=== PATIENT | male | born 1955 | race Caucasian/White ===

== ENCOUNTER → 2017-04-28 | Outpatient (CLI) | payer OTHER ==
[~2017-04-28] MED LIST: ASPIR 8181 M1 PO; ATORVASTATIN CA40 MG PO; COZAAR 25 MG TA25 MG PO; COZAAR 50 MG TA50 M2 PO; DILANTIN100 MG PO; ECOTRIN325 MG PO; ELIQUIS5 MG PO; EXCEDRIN MIGRA1 EAC1 PO; FLONASE 0.05%50 MCG NASAL; LANSOPRAZOLE30 MG PO; LISINOPRIL10 MG PO; LOVASTATIN 20 M20 MG PO; MINOCIN100 MG PO; NITROSTAT0.4 MG SUBLING; PHENYTOIN50 MG PO; PLAVIX 75 MG TA75 M1 PO; PLAVIX 75 MG TA75 MG PO; PREDNISONE 20 M20 MG PO; PROZAC10 MG PO; VALACYCLOVIR1000 MG PO
== END ==
LOC: M.ULTRA 10:00
DX: R10.11 Right upper quadrant pain (principal)

== ENCOUNTER 2017-05-06 07:35 | Inpatient (IN) | payer OTHER ==
[~2017-05-06] VITALS: Ht 175.3 cm; Wt 86.2 kg
[~2017-05-06 07:35] MED LIST changes: -COZAAR 25 MG TA25 MG PO; -MINOCIN100 MG PO; -PREDNISONE 20 M20 MG PO; -VALACYCLOVIR1000 MG PO
[2017-05-06 07:39] VITALS: BP 138/78
[2017-05-06] MEDS ORDERED: LANSOPRAZOLE30 MG PO (07:45)
[2017-05-06] MEDS ORDERED: VALACYCLOVIR1000 MG PO (07:46)
[2017-05-06 08:23] LABS: ABSOLUTE EOSINOPHILS 0.1 thou/uL (0.0-0.7); ABSOLUTE LYMPHOCYTES 2.6 thou/uL (0.8-5.3); ABSOLUTE MONOCYTES 0.9 thou/uL (0.0-1.2); ABSOLUTE NEUTROPHILS 5.7 thou/uL (1.6-8.1); ANION GAP 8 mmol/L (7-16); BASOPHILS 0.5 %; BUN 19 mg/dL (7-18); CALCIUM 8.6 mg/dL (8.5-10.1); CHLORIDE 104 mmol/L (98-107); CO2 31 mmol/L (21-32); GLUCOSE 98 mg/dL (70-99); HEMATOCRIT 41.7 % (42.0-52.0); HEMOGLOBIN 13.9 gm/dL (14.0-18.0); MCH 27.7 pg (26.0-34.0); MCHC 33.2 g/dL (28.0-37.0); MCV 83.3 fL (80.0-100.0); MONOCYTES 9.8 %; NUCLEATED RBCS 0 /100WBC; PLATELET COUNT* 280 thou/uL (150-400); POLYS 60.7 %; POTASSIUM 4.1 mmol/L (3.5-5.1); RBC 5.01 mil/uL (4.50-6.00); RDW-CV 14.9 % (10.5-14.5); SODIUM 143 mmol/L (136-145); WBC 9.4 thou/uL (4.0-11.0)
[2017-05-06 08:30] LABS: ALBUMIN 3.6 g/dL (3.4-5.0); ALKALINE PHOSPHATASE 72 U/L (46-116); SGOT 17 U/L (15-37); SGPT 47 U/L (30-65); TOTAL BILIRUBIN 0.2 mg/dL (<0.1-1.0); TOTAL PROTEIN 6.8 g/dL (6.4-8.2); TROPONIN-I LEVEL <0.06 ng/mL (<0.06)
[2017-05-06 08:33] LABS: PROTIME 9.7 Seconds (9.20-11.50)
[2017-05-06 09:45] VITALS: BP 140/80
[2017-05-06 09:50] VITALS: BP 136/71
--- NOTE | 2017-05-06 09:50 | NUR ---
RECEIVED REPORT FROM [facility]NEY IN ER. PT TRANSFERED TO TELE FLOOR AT 0950; ASSUMED CARE. PT A&O X4. VSS. O2 SAT 97% ON ROOM AIR. 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 ADMISSION HISTORY, EDUCATION, AND ASSESSMENT COMPLETED CHARTED. PT ORIENTED TO ROOM, BED AND CALL LIGHT. PT INFORMED OF PLAN OF CARE; PT COMMUNICATES UNDERSTANDING. AT BEDSIDE. IV SALINE LOCKED. PT DENIES PAIN OR DISCOMFORT AT THIS TIME. NIH SCORE 1 FOR INCORRECT AGE. PT REPORTS SLIGHT NUMBNESS/TINGLING IN LEFT HAND. PT STATES LEFT ARM FEELS "SOMEWHAT LIMP". PT PASSED BEDSIDE SWALLOW. PT LOW FALL RISK - UP WITH STANDBY ASSISTANCE TO BATHROOM. LOW FALL RISK PRECAUTIONS IN PLACE. CALL LIGHT IS WITHIN REACH. WILL CONTINUE TO MONITOR.
[2017-05-06] MEDS ORDERED: COZAAR 25 MG TA25 MG PO (10:37)
[2017-05-06 12:05] VITALS: BP 116/81
--- NOTE | 2017-05-06 14:45 | EKG ---
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 LAI : 1955 Requested By: Tom Terrell Order Number: [id number] MD: Triston Harp Measurements Intervals [place] Rate: 62 P: -6 WI: 171 QRS: -1 QRSD: 107 T: 9 QT: 379 QTc: 385 Interpretive Statements Sinus rhythm Abnormal R-wave progression, early transition Baseline wander in lead(s) V4 Compared to ECG 11/21/2016 09:29:01 No significant changes Electronically Signed On 05-06-2017 14:45:26 GLUE LINE OPERATOR by Triston Harp [email or web address] <ELECTRONICALLY SIGNED> By: Triston Harp MD, FAC 05/06/17 [id number] Triston Harp MD, [facility] /EPI
[2017-05-06 16:00] VITALS: BP 126/76
--- NOTE | 2017-05-06 16:51 | 2DMMODE ---
[place] [address] 2 D/M-MODE ECHOCARDIOGRAM Name: AYAD BAUMAN Room: [address] IN [facility]#: [id number] Admission: 05/06/17 Attend Phys: Ashish Shirley Discharge: Date of : 53 Date of Service: 05/06/17 1650 Report #: [id number] THIS REPORT FOR: //name// APPROVED REPORT Study performed: 05/06/2017 15:16:42 EXAM: Comprehensive 2D, Doppler, and color-flow Echocardiogram Patient Location: In-Patient Room #: [facility] Status: routine BSA: 2.02 HR: 75 bpm BP: 116/81 mmHg Rhythm: NSR Other Information Study Quality: Good Indications AMS Echo Enhancing Agent Agent(s) / Amount(s) Used: , cc 2D Dimensions LVEF(%): 70.56 (>50%) IVSd: 11.58 (7-11mm) LVOT Diam: 24.28 (18-24mm) LVDd: 46.04 mm PWd: 9.90 (7-11mm) Ascending Ao: 36.28 (22-36mm) LVDs: 27.68 (25-40mm) Aortic Root: 37.09 mm Palumbo's LVEF: 70.56 % Volumes Left Atrial Volume (Systole) LA ESV Index: 13.90 mL/m2 Aortic Valve AoV Peak Eloy.: 1.20 m/s AO Peak Gr.: 5.80 mmHg LVOT Max P.16 mmHg AO Mean Gr.: 3.17 mmHg LVOT Mean P.77 mmHg LVOT Max V: 1.24 m/s AO V2 VTI: 19.93 cm LVOT Mean V: 0.76 m/s NESSA (VTI): 5.08 cm2 LVOT V1 VTI: 21.87 [place] [address] 2 D/M-MODE ECHOCARDIOGRAM Name: AYAD BAUMAN Room: [address] IN [facility].#: [id number] Admission: 05/06/17 Attend Phys: Ashish Shirley Discharge: Date of : 53 Date of Service: 05/06/17 1650 Report #: [id number] Mitral Valve E/A Ratio: 1.05 MV Decel. Time: 205.12 ms MV E Max Eloy.: 0.78 m/s MV PHT: 59.49 ms MVA (PHT): 3.70 cm2 TDI E/Lateral E': 9.75 E/Medial E': 7.80 Medial E' Eloy.: 0.10 m/s Lateral E' Eloy.: 0.08 m/s Pulmonary Valve PV Peak Eloy.: 1.08 m/s PV Peak Gr.: 4.63 mmHg Left Ventricle The left ventricle is normal size. There is normal LV segmental wall motion. There is normal left ventricular wall thickness. Left ventricular systolic function is normal. LVEF is 60-65%. Transmitral Doppler flow pattern suggests impaired LV relaxation. Right Ventricle The right ventricle is normal size. The right ventricular systolic function is normal. Atria The left atrium size is normal. The right atrium size is normal. Aortic Valve The aortic valve is normal in structure. No aortic regurgitation is present. There is no aortic valvular stenosis. Mitral Valve The mitral valve is normal in structure. Trace mitral regurgitation. No evidence of mitral valve stenosis. Tricuspid Valve The tricuspid valve is normal in structure. Unable to assess PA pressure. Trace tricuspid regurgitation. Pulmonic Valve The pulmonary valve is normal in structure. [place] [address] 2 D/M-MODE ECHOCARDIOGRAM Name: AYAD BAUMAN Room: [address] IN [facility]#: [id number] Admission: 05/06/17 Attend Phys: Ashish Shirley Discharge: Date of : 53 Date of Service: 05/06/17 1650 Report #: [id number] Great Vessels The aortic root is normal in size. IVC is normal in size and collapses with >50% inspiration Pericardium There is no pericardial effusion. <Conclusion> The left ventricle is normal size. There is normal left ventricular wall thickness. Left ventricular systolic function is normal. LVEF is 60-65%. Transmitral Doppler flow pattern suggests impaired LV relaxation. Trace mitral regurgitation. IVC is normal in size and collapses with >50% inspiration <ELECTRONICALLY SIGNED> By: Travon Aguero MD, FACC 05/06/171649 49 49 Travon Aguero MD, FACC /INF
--- NOTE | 2017-05-06 18:41 | NUR ---
PT REMAINS A&0X4. VSS. O2 SAT >90% ON ROOM AIR. 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 PT COMPLETED MRI OF HEAD AND CERVICAL SPINE. NIH'S 0 TO 1 - PT STILL REPORTING SLIGHT "LIMP-NESS" IN LEFT ARM. PT EATING AND DRINKING WITHOUT ISSUE. PT ABLE TO BE UP AD JAVAN FOR BATHROOM PRIVILEGES. PT VOIDING WITHOUT ISSUE. PT CONTINUES TO DENY PAIN OR DISCOMFORT. PT PROGRESSING TOWARDS GOALS. LOW FALL RISK PRECAUTIONS IN PLACE. CALL LIGHT IS WITHIN REACH, HOURLY ROUNDING PERFORMED. WILL CONTINUE TO MONITOR FOR DURATION OF SHIFT.
[2017-05-06 19:40] VITALS: BP 141/82
[2017-05-07] VITALS (7 sets, daily range): BP systolic 107–135; BP diastolic 65–84
--- NOTE | 2017-05-07 02:25 | NUR ---
ASSUMED CARE OF PT AT 1900. PT IS ALERT AND ORIENTED. VSS. NO COMPLAINTS OF PAIN. PERRLA. PT IS IN SINUS RYTHM ON THE TELEMETRY. PT IS RESTING COMFORTABLY IN BED. RESPIRATIONS ARE EVEN AND NONLABORED. WILL CONTINUE TO MONITOR PT.
[2017-05-07 05:36] LABS: HEMATOCRIT 42.2 % (42.0-52.0); HEMOGLOBIN 13.8 gm/dL (14.0-18.0); MCH 27.3 pg (26.0-34.0); MCHC 32.7 g/dL (28.0-37.0); MCV 83.4 fL (80.0-100.0); MPV 8.1 fl. (7.2-11.1); NUCLEATED RBCS 0 /100WBC; PLATELET COUNT* 279 thou/uL (150-400); RBC 5.06 mil/uL (4.50-6.00); RDW-CV 14.7 % (10.5-14.5); WBC 11.5 thou/uL (4.0-11.0)
[2017-05-07 06:46] LABS: ABSOLUTE LYMPHOCYTES 1.4 thou/uL (0.8-5.3); ABSOLUTE MONOCYTES 0.7 thou/uL (0.0-1.2); ABSOLUTE NEUTROPHILS 9.4 thou/uL (1.6-8.1); PLATELET ESTIMATE ADEQUATE
--- NOTE | 2017-05-07 08:00 | NUR ---
PT SIOTTING UP IN CHAIR IN ROOM, APPEARS ALERT O X 4, DENIES CHEST PAIN, SOB,PAIN OR DISCOMFORT. MOG COUNTERSINKER BILAT VHANDS, R > L, SPOSE AT SIDE
[2017-05-07 10:18] LABS: HEMATOCRIT 45.6 % (42.0-52.0); HEMOGLOBIN 14.8 gm/dL (14.0-18.0); MCH 27.6 pg (26.0-34.0); MCHC 32.4 g/dL (28.0-37.0); MCV 85.1 fL (80.0-100.0); MPV 7.9 fl. (7.2-11.1); RBC 5.36 mil/uL (4.50-6.00); RDW-CV 15.4 % (10.5-14.5); WBC 20.2 thou/uL (4.0-11.0)
[2017-05-07 10:25] LABS: CALCIUM 9.1 mg/dL (8.5-10.1); CREATININE 1.2 mg/dL (0.6-1.3); POTASSIUM 3.6 mmol/L (3.5-5.1)
--- NOTE | 2017-05-07 11:31 | NUR ---
CM ASSESSMENT: Pt is A&O. Resides at home with his . Independent with ADLs, continues to work outside of the home. No DME. No hx of HH or SNF. Supportive family that is involved in POC. Goal is to return home once medically stable for dc. Following.
--- NOTE | 2017-05-07 12:04 | NUR ---
PT DEMONSTRATES INDEPENDENT AND STABLE FUNCTIONAL MOBILITY W/O DME SUPPORT. PT DEMONSTRATES 5/5 LLE STRENGTH AND INTACT LLE SENSATION. PT AND SPOUSE INDICATE THEY HAVE DME AVAILABLE NEEDED AT HOME AND VOICE NO CONCERNS REGARDING DISCHARGE TO HOME. NO FURTHER ACUTE PT SERVICES ARE INDICATED AT THIS TIME.
[2017-05-07] MEDS ORDERED: PREDNISONE 20 M20 MG PO (14:47)
[2017-05-07] MEDS ORDERED: MINOCIN100 MG PO (14:47)
[2017-05-10 09:47] LABS: POC CA IONIZED 4.6 mg/dL (4.5-5.3); POC HEMOGLOBIN 14.3 g/dL (12.0-17.0)
[2017-05-13] MEDS ORDERED: PLAVIX 75 MG TA75 M1 PO (14:06)
--- NOTE | 2017-05-14 10:39 | CON ---
[address] [address] CONSULTATION Name: AYAD ABUMAN Room: [address] IN .R.#: [id number] Admission: 05/06/17 Attend Phys: Tamera Burt Discharge: 05/07/17 Date of : 53 Report #: [id number] THIS REPORT FOR: //name// CC: Jarrod Shirley DATE OF SERVICE: 05/06/2017 HISTORY OF PRESENT ILLNESS: This is a 62-year-old male patient who was evaluated because he woke up with the left upper extremity weakness. He noticed, then he woke up and he had trouble reaching to his head, he had trouble using his arms. It was predominantly in the ulnar distribution, but lot of arm was affected. He does not remember any trauma. 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 They were severe, now they are moderately severe. 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 Since then, he has seen multiple other neurologist. He saw Dr. Diaz twice during the admission to this hospital. He saw Dr. Castillo who is a neurologist in [facility] and at one time was given Dilantin with symptoms, which I am not sure he had a reaction to Dilantin and it was discontinued and he has not had any more neurological symptoms. REVIEW OF SYSTEMS: He indicates that he is hypertensive. He takes antihypertensive and his hypertension is reasonably under control. He takes aspirin and statin. He does have a history of chest pain. During his stays here in this hospital multiple times he has been seen by multiple physicians. He also has been seen by behavioral health clinician. The record indicated that he does appear to have a patent foramen ovale. REVIEW OF SYSTEMS: A 14-point review of system was otherwise noncontributory. He did have history of some neck symptoms in the past, but he is not complaining of any neck symptom for the time being. PAST MEDICAL HISTORY: Positive for what looks like patent foramen ovale and stroke. FAMILY HISTORY: Negative for early age stroke. 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 He does not smoke or drink any alcohol. PHYSICAL EXAMINATION: Indicate he is alert, responsive. His speech, concentration, fund of knowledge and memory is at his baseline. Cranial nerve examination 2-12 is unremarkable. I do not think there is a prominent facial palsy on the left, I cannot exclude small one. [place] [address] CONSULTATION Name: AYAD BAUMAN Room: [address]#: [id number] Admission: 05/06/17 Attend Phys: Tamera Burt Discharge: 05/07/17 Date of : 53 Report #: [id number] deficit in the left upper extremity. It is predominantly in the ulnar distribution, but his elbow muscles and to some extent shoulder muscles are also involved. His reflexes are present. In the lower extremities, his examination is unremarkable. He has no papilledema. There is no carotid bruit in this patient. There is no meningeal sign. His cardiac examination is clinically appear unremarkable. His blood pressure is 116/81, pulse is 107, temperature is 97.7. He did have a CT and CTA and that was reviewed and that was unremarkable. His last LDL was 84. IMPRESSION AND PLAN: Left upper extremity weakness, which is pretty significant. Multiple diagnoses need to be considered in this patient and they include stroke, brachial plexus injury or spinal cord problems. All of them need to be considered in this patient, especially with his previous spine history and stroke. I discussed that aspect with him. We will go ahead and do the MRI of the brain and C-spine. If it shows stroke, then question need to be addressed whether to close his patent foramen ovale or not. With the new study that appeared to be the indications. It looks like this patient has been tried on Plavix and anticoagulation or at least a consideration has been given. We will address that question after his MRIs are available. I discussed that with the patient and he understands that and he wants to proceed with this plan. The patient was also discussed with Dr. Shirley. More than 50 minutes of time was spent taking care of this patient today and majority of that time was spent counseling the patient on above matters and coordinating his care. Thank you very much for this referral. <ELECTRONICALLY SIGNED> By: Nils Ascencio MD 05/14/17 1039 1513 48Nils Ascencio MD /unruly
== END 2017-05-07 17:00 | disposition home or self-care (01) | DRG 65 ==
LOC: M.ERS 07:35 → M.TBA-ER 09:16 → M.2W 09:16
PROVIDERS: Family Medicine; ADMIT Internal Medicine
DX: I63.9 Cerebral infarction, unspecified (principal); Q21.1 Atrial septal defect; G81.94 Hemiplegia, unspecified affecting left nondominant side; R65.10 Systemic inflammatory response syndrome (SIRS) of non-infectious origin without acute organ dysfunction; I10 Essential (primary) hypertension; E78.5 Hyperlipidemia, unspecified; Z66 Do not resuscitate; E78.00 Pure hypercholesterolemia, unspecified; D64.9 Anemia, unspecified; K21.9 Gastro-esophageal reflux disease without esophagitis; Z87.442 Personal history of urinary calculi; Z79.82 Long term (current) use of aspirin; Z79.899 Other long term (current) drug therapy; Z88.0 Allergy status to penicillin

== ENCOUNTER → 2017-05-13 | Outpatient (CLI) | payer OTHER ==
[2017-05-13] VITALS (10 sets, daily range): BP systolic 101–136; BP diastolic 63–83
[~2017-05-13] MED LIST changes: +COZAAR 25 MG TA25 MG PO; +MINOCIN100 MG PO; +PREDNISONE 20 M20 MG PO; +VALACYCLOVIR1000 MG PO
--- NOTE | 2017-05-13 15:35 | TEE ---
[place] [address] TRANSESOPHAGEAL ECHOCARDIOGRAM Name: AYAD BAUMAN Room: [facility]#: [id number] Admission: 05/13/17 Attend Phys: Robert Sharif, Discharge: Date of : 53 Date of Service: 05/13/17 1534 Report #: [id number] THIS REPORT FOR: //name// APPROVED REPORT Study performed: 05/13/2017 13:12:11 EXAM: Transesophageal Echocardiogram Patient Location: Out-Patient Status: routine BSA: 2.02 HR: 56 bpm BP: 127/80 mmHg Rhythm: NSR Other Information Study Quality: Good Indications CVA/TIA Echo Enhancing Agent Indication: Rule out Shunt Agent(s) / Amount(s) Used: Agitated Saline 20 cc Procedure After obtaining informed consent, patient underwent transesophageal echo in the [employer]. Type of Sedation : Conscious Sedation Sedation was administered by Amita Hyatt. Sedation start time: 1307 Case end Time: 1332 Sedation was achieved intravenously with: Versed (5) Fentanyl (75) Transesophageal probe was inserted and advanced into esophagus without difficulty by Robert Sharif MD, FACC. Echo enhancement indication: R/O Septal defect. Echo enhancement agent administered: Agitated Saline The ROBIN was performed without complications. Throughout the procedure, the blood pressure, pulse oximetry, cardiac rhythm, and rate were monitored. The patient tolerated the procedure without adverse effects. Recovery from conscious sedation was uneventful and vital signs were stable. Left Ventricle [place] [id number] TRANSESOPHAGEAL ECHOCARDIOGRAM Name: AYAD BAUMAN Room: [facility]#: [id number] Admission: 05/13/17 Attend Phys: Robert Sharif, Discharge: Date of : 53 Date of Service: 05/13/17 1534 Report #: [id number] The left ventricle is normal size. There is normal LV segmental wall motion. There is normal left ventricular wall thickness. There is no ventricular septal defect visualized. Left ventricular systolic function is normal. The left ventricular ejection fraction is within the normal range. No left ventricle thrombus noted on this study. LVEF is 60-65%. Right Ventricle The right ventricle is normal size. The right ventricular systolic function is normal. Atria No thrombus is visualized in the left atrium or appendage. The left atrium size is normal. Atrial septal aneurysm is present with PFO. The right atrium size is normal. Aortic Valve The aortic valve is normal in structure. No aortic regurgitation is present. There is no aortic valvular stenosis. Mitral Valve The mitral valve is normal in structure. Trace mitral regurgitation. No evidence of mitral valve stenosis. Tricuspid Valve The tricuspid valve is normal in structure. Trace tricuspid regurgitation. Pulmonic Valve The pulmonary valve is normal in structure. There is no pulmonic valvular regurgitation. Great Vessels The aortic root is normal in size. The ascending aorta is normal in size. Pericardium There is no pericardial effusion. <Conclusion> LVEF is 60-65%. There is normal [place] [address] TRANSESOPHAGEAL ECHOCARDIOGRAM Name: AYAD BAUMAN Room: [facility]#: [id number] Admission: 05/13/17 Attend Phys: Robert Sharif, Discharge: Date of : 53 Date of Service: 05/13/17 1534 Report #: [id number] Atrial septal aneurysm is present with PFO. Trace mitral regurgitation. <ELECTRONICALLY SIGNED> By: Robert Sharif MD, FACC 05/13/17 1534 [id number] Robert Sharif MD, FACC /INF
== END | disposition home or self-care (01) ==
LOC: M.CL 12:17
DX: I25.3 Aneurysm of heart (principal); Q21.1 Atrial septal defect; Z86.73 Personal history of transient ischemic attack (TIA), and cerebral infarction without residual deficits; Z88.0 Allergy status to penicillin; Z79.82 Long term (current) use of aspirin

== ENCOUNTER 2020-01-09 11:59 | Emergency (ER) | payer OTHER ==
[~2020-01-09] VITALS: Ht 175.3 cm; Wt 88.9 kg
[2020-01-09] MEDS ORDERED: LISINOPRIL2.5 MG PO (12:15)
[2020-01-09 12:39] LABS: URINE BILIRUBIN NEGATIVE (Negative); URINE BLOOD 1+ (Negative); URINE CLARITY CLEAR; URINE COLOR YELLOW; URINE GLUCOSE-RANDOM NEGATIVE (Negative); URINE KETONES NEGATIVE (Negative); URINE LEUKOCYTES-REFLEX 1+ (Negative); URINE NITRITE-REFLEX NEGATIVE (Negative); URINE PROTEIN NEGATIVE (Negative); URINE SPECIFIC GRAVITY >= 1.030 (1.005-1.030); URINE UROBILINOGEN 0.2 E.U./dl (0.2-1.0)
[2020-01-09 12:41] LABS: ABSOLUTE EOSINOPHILS 0.2 thou/uL (0.0-0.7); ABSOLUTE LYMPHOCYTES 2.6 thou/uL (0.8-5.3); ABSOLUTE MONOCYTES 0.7 thou/uL (0.0-1.2); ABSOLUTE NEUTROPHILS 3.8 thou/uL (1.6-8.1); BASOPHILS 0.6 %; EOSINOPHILS 2.5 %; HEMATOCRIT 41.3 % (42.0-52.0); HEMOGLOBIN 13.7 gm/dL (14.0-18.0); LYMPHOCYTES 34.8 %; MCH 27.6 pg (26.0-34.0); MCHC 33.2 g/dL (28.0-37.0); MCV 83.2 fL (80.0-100.0); NUCLEATED RBCS 0 /100WBC; PLATELET COUNT* 238 thou/uL (150-400); POLYS 52.1 %; RBC 4.97 mil/uL (4.50-6.00); RDW-CV 15.2 % (10.5-14.5); WBC 7.3 thou/uL (4.0-11.0)
[2020-01-09 12:47] LABS: CALCIUM 8.6 mg/dL (8.5-10.1); CREATININE 1.1 mg/dL (0.6-1.3); POTASSIUM 3.6 mmol/L (3.5-5.1)
[2020-01-09 12:51] LABS: ALBUMIN 3.9 g/dL (3.4-5.0); TOTAL BILIRUBIN 0.4 mg/dL (<0.1-1.0); TOTAL PROTEIN 7.3 g/dL (6.4-8.2)
[2020-01-09 12:58] LABS: BACTERIA-REFLEX 1-9 Few /HPF (None Seen); CASTS None Seen /LPF (None Seen); CRYSTALS None Seen /LPF (None Seen); MUCUS None Seen strn/LPF (None Seen); SQUAMOUS 4-10 Moderate /LPF (0-3); URINE WBC-REFLEX 6-15 Few /HPF (0-5)
[2020-01-09] MEDS ORDERED: ONDANSETRON HCL4 M2 PO (15:07)
[2020-01-09] MEDS ORDERED: FLOMAX0.4 MG PO (15:07)
[2020-01-09] MEDS ORDERED: PERCOCET PO (15:07)
[2020-01-09] MEDS ORDERED: CIPRO500 MG PO (15:07)
[2020-01-09 15:37] VITALS: BP 115/50
== END 2020-01-09 15:53 | disposition home or self-care (01) ==
LOC: M.ERS 11:59
PROVIDERS: Nurse Practitioner Family
DX: N20.1 Calculus of ureter (principal); I10 Essential (primary) hypertension; E78.00 Pure hypercholesterolemia, unspecified; K21.9 Gastro-esophageal reflux disease without esophagitis; Z79.899 Other long term (current) drug therapy; Z88.0 Allergy status to penicillin; Z87.442 Personal history of urinary calculi

== ENCOUNTER → 2020-09-27 | Outpatient (CLI) | payer OTHER ==
[~2020-09-27] MED LIST changes: +CIPRO500 MG PO; +FLOMAX0.4 MG PO; +LISINOPRIL2.5 MG PO; +ONDANSETRON HCL4 M2 PO; +PERCOCET PO
== END ==
LOC: M.NUC 09-23 09:14
PROVIDERS: ATTEND Internal Medicine Gastroenterology
DX: K76.0 Fatty (change of) liver, not elsewhere classified (principal)

== ENCOUNTER → 2020-10-11 | Outpatient (CLI) | payer OTHER | LOC: M.NUC 07:45 | PROVIDERS: ATTEND Internal Medicine Gastroenterology | DX: R10.9 Unspecified abdominal pain (principal) ==

== ENCOUNTER → 2020-11-06 | Outpatient (CLI) | payer OTHER | LOC: M.LAB 06:14 | PROVIDERS: ATTEND Internal Medicine Gastroenterology | DX: Z01.818 Encounter for other preprocedural examination (principal); Z20.822 Contact with and (suspected) exposure to COVID-19 ==

== ENCOUNTER → 2020-11-12 | Outpatient (CLI) | payer OTHER | LOC: M.CT 10:47 | PROVIDERS: ATTEND Internal Medicine Gastroenterology | DX: K76.0 Fatty (change of) liver, not elsewhere classified (principal); R91.1 Solitary pulmonary nodule; N21.0 Calculus in bladder; N28.1 Cyst of kidney, acquired; N28.89 Other specified disorders of kidney and ureter; N20.0 Calculus of kidney; I35.8 Other nonrheumatic aortic valve disorders; I70.1 Atherosclerosis of renal artery; D50.9 Iron deficiency anemia, unspecified; R10.9 Unspecified abdominal pain ==